=== PATIENT | female | born 1980 | race Caucasian/White ===

== ENCOUNTER 2017-07-26 02:49 | Emergency (ER) | payer SELFPAY ==
[2017-07-26 03:14] VITALS: BP 133/85
--- NOTE | 2017-07-26 07:40 | RAD ---
INDICATION: Left rib pain COMPARISON: None TECHNIQUE: Multiple views of the ribs were obtained. FINDINGS: Bones: There is no evidence of acute rib fracture. LUNGS: The lungs are clear. There is no pneumothorax. Pleural spaces: There is no evidence of hemothorax. Other: None IMPRESSION: NO ACUTE RIB FRACTURE.
--- NOTE | 2017-08-03 21:59 | ED ---
Huong Husain Emily, scribed for Rafal De La O MD on 07/26/17 at 0532 . Complex/Multi-Sys Presentation - HPI Summary HPI Summary: This patient is a 37 year old F presenting to [facility] with a chief complaint of left side pain that began at 0300. 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 The patient rates the pain 9/10 in severity. Symptoms aggravated by deep breaths. Symptoms alleviated by nothing. Pt denies having any previous fractures. Last menstrual period was on 07/20/2017. - History Of Current Complaint Chief Complaint: EDGeneral Hx Obtained From: Patient Onset/Duration: Sudden Onset, Lasting Hours, Still Present Timing: Constant, Hours Severity Currently: Severe Severity Initially: Severe Location: Pain At: - Left side - Allergies/Home Medications Allergies/Adverse Reactions: Allergies Allergy/AdvReac Type Severity Reaction Status Date / Time No Known Allergies Allergy Verified 07/26/17 03:14 PMH/Surg Hx/FS Hx/Imm Hx Previously Healthy: Yes Opthamlomology History: Denies: Hx Legally Blind EENT History: Denies: Hx Deafness - Immunization History Date of Tetanus Vaccine: unk Date of Influenza Vaccine: 2016 Infectious Disease History: No Infectious Disease History: Denies: Traveled Outside the [place] in Last 30 Days - Family History Known Family History: Positive: Unknown - Social History Occupation: Employed Full-time Lives: With Family Alcohol Use: Rare Substance Use Type: Reports: None Smoking Status (MU): Never Smoked Tobacco Review of Systems Negative: Fever Positive: Other - Positive L side pain All Other Systems Reviewed And Are Negative: Yes Physical Exam - Summary Physical Exam Summary: Appearance: Well-appearing, Well-nourished Skin: Warm, Dry, No rash Eyes: Normal, PERRL, EOMI, sclera anicteric ENT: Normal Neck: Supple, nontender Respiratory: Clear to auscultation Cardiovascular: S1, S2, no murmur, no rub, no gallop Abdomen: Soft, nontender, no organomegaly Bowel sounds: Present Musculoskeletal: Normal, Strength/ROM Intact, no edema, pulses symmetrical Neurological: Normal, A&Ox3, cranial nerves 2-12 wnl, follows commands, gait not tested, sensation intact to pin and light touch Psychiatric: affect normal, behavior appropriate, dressed appropriately, judgment intact Triage Information Reviewed: Yes Vital Signs On Initial Exam: Initial Vitals Temp Pulse Resp BP Pulse Ox 97.4 F 68 18 133/85 100 07/26/17 03:11 07/26/17 03:11 07/26/17 03:11 07/26/17 03:11 07/26/17 03:11 Vital Signs Reviewed: Yes - [place] Coma Scale Coma Scale Total: 15 Diagnostics - Vital Signs Vital Signs Temp Pulse Resp BP Pulse Ox 07/26/17 03:11 97.4 F 68 18 133/85 100 - Laboratory Lab Statement: Any lab studies that have been ordered have been reviewed, and results considered in the medical decision making process. - Radiology Rib XR Radiology Interpretation Completed By: ED Physician - Ribs XR read by ED physician reveals no fracture. Complex Multi-Symp Course/Dx Assessment/Plan: This patient is a 37 year old F presenting to [facility] with a chief complaint of left side pain that began at 0300. 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 The patient rates the pain 9/10 in severity. Symptoms aggravated by deep breaths. Symptoms alleviated by nothing. Pt denies having any previous fractures. Last menstrual period was on 2016. Physical Exam Findings. Nml. Medical Decision Making. Ribs XR read by ED physician reveals no fracture. Impression: costochondritis. Patient will be discharged with follow up from PCP. The patient is agreeable with this plan. - Diagnoses Provider Diagnoses: Costochondritis Discharge - Discharge Plan Condition: Good Disposition: HOME Patient Education Materials: Costochondritis (ED) Referrals: No Primary Care Phys,NOPCP [Primary Care Provider] - Additional Instructions: return to work 07/27 The documentation as recorded by the Huong jones Emily accurately reflects the service I personally performed and the decisions made by me, Rafal De La O MD.
== END 2017-07-26 06:06 | disposition home or self-care (01) ==
LOC: ED 02:49
DX: M94.0 Chondrocostal junction syndrome [Tietze] (principal)
CPT/HCPCS: 99281

== ENCOUNTER 2018-11-01 09:34 | Emergency (ER) | payer BC, OTHER ==
[2018-11-01 09:47] VITALS: BP 135/86
[2018-11-01] MEDS ORDERED: Naproxen TAB* 250 MG PO ONE (09:50)
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
== END 2018-11-01 10:01 | disposition home or self-care (01) ==
LOC: ED 09:34
DX: Z04.1 Encounter for examination and observation following transport accident (principal)
CPT/HCPCS: 99282; A9270-GY